=== PATIENT | female | born 1955 | race Hispanic/Latino ===

== ENCOUNTER 2018-12-10 12:11 | Emergency (ER) | payer BC ==
[2018-12-10 12:24] VITALS: RESP 18
--- NOTE | 2018-12-10 12:49 | ED PDOC ---
HPI: Chest Pain Time Seen by Provider: 12/10/18 12:23 Chief Complaint (Nursing): Chest Pain History Per: Patient Onset/Duration Of Symptoms: Hrs (2) Current Symptoms Are (Timing): Intermittent Episodes Severity: Mild Quality: Aching Associated Symptoms: denies: Dyspnea Modifying Factors: None Exacerbating Factors: None Alleviating Factors: None Additional Complaint(s): Chest pain assoc with palpitations x 2hrs. Pain radiates to back of left shoulder.Followed by medical records manager for pvcs which started 1 week ago. Denies dizziness or SOB. Past Medical History Vital Signs: Last Vital Signs Temp 97.9 F 12/10/18 12:22 Pulse 74 12/10/18 12:22 Resp 18 12/10/18 12:22 BP 153/74 H 12/10/18 12:22 Pulse Ox 99 12/10/18 12:22 - Medical History PMH: Cardia Arrhythmia, Malignancy (Breast Ca s/p chemo) - Family History Family History: States: Unknown Family Hx - Allergies Allergies/Adverse Reactions: Allergies Allergy/AdvReac Type Severity Reaction Status Date / Time No Known Allergies Allergy Verified 12/10/18 12:21 Review of Systems ROS Statement: Except As Marked, All Systems Reviewed And Found Negative Cardiovascular: Positive for: Chest Pain, Palpitations Physical Exam - Reviewed Nursing Documentation Reviewed: Yes Vital Signs Reviewed: Yes - Physical Exam Appears: Positive for: Non-toxic, No Acute Distress Head Exam: Positive for: ATRAUMATIC, NORMAL INSPECTION, NORMOCEPHALIC Skin: Positive for: Normal Color, Warm, DRY Eye Exam: Positive for: EOMI, Normal appearance, PERRL ENT: Positive for: Normal ENT Inspection Neck: Positive for: Normal, Painless ROM Cardiovascular/Chest: Positive for: Regular Rate, Rhythm Respiratory: Positive for: CNT, Normal Breath Sounds Gastrointestinal/Abdominal: Positive for: Normal Exam, Soft Back: Positive for: Normal Inspection Extremity: Positive for: Normal ROM Neurologic/Psych: Positive for: Alert, Oriented - Laboratory Results Result Diagrams: 12/10/18 12:58 12/10/18 12:58 - ECG O2 Sat by Pulse Oximetry: 99 Medical Decision Making Medical Decision Making: Advised 24 hr obs to r/o ACS. Pt declines, understands risks including cardiac arryhthmia and .Pt advised to return immediately to ED if chest pain, palpitations, SOB or dizziness occurs. Pt will f/u with PMD, medical records manager. Disposition - Clinical Impression Clinical Impression: Chest pain - Patient ED Disposition Is Patient to be Admitted: No Counseled Patient/Family Regarding: Studies Performed, Diagnosis, Need For Followup - Disposition Referrals: Martin Tirado MD [Staff Provider] - Disposition: Routine/Home Disposition Time: 13:49 Condition: FAIR Instructions: Chest Pain Forms: [employer] (Faroese)
[2018-12-10 13:10] LABS: BASO % 0.7 % (0.0-2.0); EOS # 0.1 K/uL (0.0-0.7); EOS % 1.4 % (0.0-4.0); LYMPH # 2.5 K/uL (1.0-4.3); LYMPH % 39.5 % (20.0-40.0); MEAN CORPUSCULAR HEMOGLOBIN 30.3 pg (27.0-31.0); MEAN CORPUSCULAR HGB CONC 32.9 g/dL (33.0-37.0); MEAN PLATELET VOLUME 9.9 fl (7.2-11.7); MONO # 0.6 K/uL (0.0-0.8); MONO % 9.6 % (0.0-10.0); NEUT # 3.1 K/uL (1.8-7.0); NEUT % 48.8 % (50.0-75.0); NRBC % 0.1 % (0.0-0.0); RBC 4.62 Mil/uL (3.80-5.20); RED CELL DISTRIBUTION WIDTH 13.1 % (11.5-14.5); WHITE BLOOD COUNT 6.5 K/uL (4.8-10.8)
[2018-12-10 13:11] LABS: ALB/GLOB RATIO 1.5 (1.0-2.1); ALBUMIN 4.5 g/dL (3.5-5.0); ALT/SGPT 35 U/L (9-52); AST/SGOT 25 U/L (14-36); BLOOD UREA NITROGEN 18 mg/dl (7-17); CALCIUM 9.8 mg/dL (8.4-10.2); GFR NON-AFRICAN AMERICAN > 60
--- NOTE | 2018-12-10 14:05 | RAD ---
Date of service: 12/10/2018 HISTORY: chest pain COMPARISON: No prior. TECHNIQUE: Chest PA and lateral FINDINGS: LUNGS: No active pulmonary disease. PLEURA: No significant pleural effusion identified. No pneumothorax apparent. CARDIOVASCULAR: No aortic atherosclerotic calcification present. Normal cardiac size. No pulmonary vascular congestion. OSSEOUS STRUCTURES: No significant abnormalities. VISUALIZED UPPER ABDOMEN: Normal. OTHER FINDINGS: None. IMPRESSION: No active disease.
[2018-12-10 14:08] VITALS: BP 142/72; PULSE 70; TEMP 98; O2SAT 100
--- NOTE | 2018-12-11 10:14 | CARD ---
APPROVED REPORT Date of service: 12/10/2018 EKG Measurement Heart [id number] <Conclusion> Sinus rhythm with premature ventricular complexes Possible Left atrial enlargement Borderline ECG
== END 2018-12-10 14:13 | disposition home or self-care (01) ==
LOC: H.ER 12:11
DX: R07.9 Chest pain, unspecified (principal)